=== PATIENT | male | born 1995 | race Caucasian/White ===

== ENCOUNTER 2017-10-26 14:37 | Emergency (ER) | payer BC, OTHER ==
[~2017-10-26] VITALS: Ht 152.4 cm; Wt 78.7 kg
[2017-10-26 16:40] VITALS: BP 120/62
== END 2017-10-26 17:12 | disposition home or self-care (01) ==
LOC: ED 15:00
DX: S54.92XA Injury of unspecified nerve at forearm level, left arm, initial encounter (principal); W19.XXXA Unspecified fall, initial encounter; Y93.23 Activity, snow (alpine) (downhill) skiing, snowboarding, sledding, tobogganing and snow tubing; Y99.8 Other external cause status; Y92.828 Other wilderness area as the place of occurrence of the external cause
CPT/HCPCS: 72125; 99284

== ENCOUNTER → 2020-02-24 | Outpatient (CLI) | payer BC | END | disposition home or self-care (01) | LOC: EDSTATUS 09:00 → CVU 09:50 | PROVIDERS: ATTEND Physician Assistant Medical | DX: I34.0 Nonrheumatic mitral (valve) insufficiency (principal); Q24.9 Congenital malformation of heart, unspecified | CPT/HCPCS: 93306; 93356 ==